=== PATIENT | female | born 1930 | race Caucasian/White ===

== ENCOUNTER 2016-12-18 18:20 | Emergency (ER) | payer MEDICARE, OTHER ==
[2016-12-18 18:34] VITALS: BP 159/69
--- NOTE | 2016-12-18 19:12 | UC ---
Complaint Female HPI - HPI Summary HPI Summary: Urinary urgency frequency and incontinence for 2-3 days - History Of Current Complaint Chief Complaint: [facility]CGU Stated Complaint: STOMACH PAIN Time Seen by Provider: 12/18/16 18:55 Hx Obtained From: Patient, Family/Hand Bender ?: No Onset/Duration: Gradual Onset, Lasting Days - 2-3 Timing: Constant Severity Initially: Moderate Severity Currently: Moderate Aggravating Factor(s): Urination Associated Signs And Symptoms: Positive: Negative - Allergies/Home Medications Allergies/Adverse Reactions: Allergies Allergy/AdvReac Type Severity Reaction Status Date / Time Diltiazem [Cardizem] Allergy Unknown Verified 12/18/16 18:58 Reaction Details Etodolac [From Lodine] Allergy Unknown Verified 12/18/16 18:58 Reaction Details Hydrochlorothiazide Allergy Unknown Verified 12/18/16 18:58 Reaction Details Moxifloxacin [From Avelox] Allergy Unknown Verified 12/18/16 18:58 Reaction Details Nitrofurantoin Allergy Unknown Verified 12/18/16 18:58 Reaction Details Penicillins Allergy Unknown Verified 12/18/16 18:58 Reaction Details Sulfamethoxazole Allergy Unknown Verified 12/18/16 18:58 Reaction Details Home Medications: Home Medications Donepezil Hydrochloride [Aricept 10 MG TAB] 10 mg PO DAILY 12/18/16 [History Confirmed 12/18/16] Escitalopram Oxalate [Lexapro 10 mg] 10 mg PO DAILY 12/18/16 [History Confirmed 12/18/16] Ipratropium [place] (Nasal) [Ipratropium [place]] 0.03 % NASAL BID 12/18/16 [ History Confirmed 12/18/16] Memantine XR CAP* [Namenda XR CAP*] 28 mg PO DAILY 12/18/16 [History Confirmed 12/18/16] Polyethylene Glycol 3350* [Miralax*] 17 gm PO DAILY 12/18/16 [History Confirmed 12/18/16] Solifenacin(NF) [Vesicare(NF)] 5 mg PO BEDTIME 12/18/16 [History Confirmed 12/18] PMH/Surg Hx/FS Hx/Imm Hx Previously Healthy: No Neurological History: Dementia Psychological History: Depression - Surgical History Surgical History: Yes Surgery Procedure, Year, and Place: Hysterectomy. cataracts. appendectomy - Family History Known Family History: Positive: None - Social History Occupation: Retired Lives: Assisted Living Alcohol Use: None Substance Use Type: None Smoking Status (MU): Never Smoked Tobacco Review of Systems Constitutional: Negative Skin: Negative Eyes: Negative ENT: Negative Respiratory: Negative Cardiovascular: Negative Gastrointestinal: Negative Genitourinary: Dysuria, Frequency, Urgency Motor: Negative Neurovascular: Negative Musculoskeletal: Negative Neurological: Negative Psychological: Negative Is Patient Immunocompromised?: No All Other Systems Reviewed And Are Negative: Yes Physical Exam Triage Information Reviewed: Yes Appearance: Well-Appearing, No Pain Distress, Well-Nourished Vital Signs: Initial Vital Signs Temp 97.2 F 12/18/16 18:29 Pulse 79 12/18/16 18:29 Resp 16 12/18/16 18:29 BP 159/69 12/18/16 18:29 Pulse Ox 98 12/18/16 18:29 Vital Signs Reviewed: Yes Eye Exam: Normal Eyes: Positive: Conjunctiva Clear ENT Exam: Normal ENT: Positive: Normal ENT inspection, Hearing grossly normal. Negative: Nasal congestion, Trismus, Muffled voice, Hoarse voice Dental Exam: Normal Neck exam: Normal Neck: Positive: Supple, Nontender Respiratory Exam: Normal Respiratory: Positive: Chest non-tender, No respiratory distress, No accessory muscle use Cardiovascular Exam: Normal Cardiovascular: Positive: RRR, Pulses Normal, Brisk Capillary Refill Abdominal Exam: Normal Abdomen Description: Positive: Nontender, No Organomegaly, Soft. Negative: CVA Tenderness (R), CVA Tenderness (L) Bowel Sounds: Positive: Present Musculoskeletal Exam: Normal Musculoskeletal: Positive: Strength Intact, ROM Intact, No Edema Neurological Exam: Normal Neurological: Positive: Alert, Muscle Tone Normal Psychological Exam: Normal Skin Exam: Normal Diagnostics - Laboratory Diagnostic Studies Completed/Ordered: ua +1blood, +2 Leukoesterace Complaint Female Dx - Course Course Of Treatment: Increase fluids, follow with pcp start Keflex - Differential Dx/Diagnosis Provider Diagnoses: UTI Discharge - Discharge Plan Condition: Stable Disposition: HOME Prescriptions: Cephalexin CAP* [Keflex CAP*] 500 mg PO BID #13 cap Patient Education Materials: Urinary Tract Infection in Women (ED) Referrals: No Primary Care Phys,NOPCP [Primary Care Provider] - 3 Days Additional Instructions: Notify primary provider of UTI and antibiotic use. This antibiotic may effect her INR. It is important this be monitored by her primary care doctor
[2016-12-18] MEDS ORDERED: Cephalexin CAP* 500 MG PO ONE (19:20)
--- NOTE | 2016-12-20 15:47 | UC ---
Progress - Progress Note Progress Note: NOTIFY PT NO UTI STOP ANTIBIOTIC SEE PMD IF STILL SYMPTOMATIC
== END 2016-12-18 19:34 | disposition home or self-care (01) ==
LOC: UCEAST 18:20
DX: N39.0 Urinary tract infection, site not specified (principal); Z88.0 Allergy status to penicillin; Z88.2 Allergy status to sulfonamides; Z88.8 Allergy status to other drugs, medicaments and biological substances; F03.90 Unspecified dementia, unspecified severity, without behavioral disturbance, psychotic disturbance, mood disturbance, and anxiety; F32.9 Major depressive disorder, single episode, unspecified
CPT/HCPCS: 81003; 87086; 99212; A9270-GY; G0463